=== PATIENT | female | born 1965 | race Caucasian/White ===

== ENCOUNTER 2018-08-24 09:40 | Emergency (ER) | payer SELFPAY ==
[~2018-08-24] VITALS: Ht 154.9 cm; Wt 54.4 kg
== END 2018-08-24 10:00 | disposition home or self-care (01) ==
LOC: ED 09:40
DX: R05 Cough (principal)

== ENCOUNTER 2023-07-17 16:56 | Emergency (ER) | payer OTHER ==
[~2023-07-17] VITALS: Ht 154.9 cm; Wt 65.8 kg
--- OUTSIDE RECORDS SUMMARY | 2023-07-17 16:58 | XMS ---
PreManage Notification: MARII ZELAYA Security Billing Representative Events 1 event(s) in the past 18 months Most recent security events: Elopement at [facility] 03/30/2023 13:46 - Patient eloped with IV in place. - Patient eloped before treatment completed. - Patient with suicidal and/or homicidal ideations eloped. Details: Patient LWBS CRITERIA MET - 6 ED Visits in 6 Months - [facility] - 2 Visits in 30 Days CARE PROVIDERS BRETT HOLT Community Health Worker 06/20/2022-Current PHONE: [phone] [facility] Community Health Worker 08/03/2019-Current PHONE: [phone] Re Wall Community Health Worker 08/03/2019-Current PHONE: [phone] -Guerda- Dentist: Signs Sales Representative [facility] PHONE: [phone] [facility] Pediatrics Current CARE SYSTEM \F\ [facility] PHONE: [phone] Care Guidelines exist for the following facilities: [facility] Merissa ( 08/12/2019 ) Saritha VISIT COUNT (12 MO.) [address] [place] TOTAL 14 NOTE: Visits indicate total known visits. ED/UCC VISIT TRACKING (12 MO.) 07/17/2023 16:57 [facility] [place] TYPE: Emergency COMPLAINT: - WEAKNESS 07/13/2023 19:06 [facility] [place] TYPE: Emergency DIAGNOSES: - Acute stress reaction - CHEST PAIN AND ANXIETY 05/26/2023 20:14 [facility] [place] TYPE: Emergency DIAGNOSES: - Abrasion of other part of head, initial encounter - Contusion of other part of head, initial encounter - Urinary tract infection, site not specified - HEAD INJURY 03/30/2023 13:46 [facility] [place] TYPE: Emergency COMPLAINT: - R ANKLE PAIN 03/20/2023 21:01 [email or web address] [place] TYPE: Emergency DIAGNOSES: - Diarrhea, unspecified - Nausea with vomiting, unspecified - WEAKNESS/DIARRHEA 03/16/2023 10:55 [email or web address] [place] TYPE: Emergency DIAGNOSES: - Cystitis, unspecified without hematuria - UTI 01/26/2023 06:16 [facility] [place] TYPE: Emergency COMPLAINT: - L SHOULDER PAIN DIAGNOSES: - L SHOULDER PAIN 01/24/2023 10:38 [facility] [place] TYPE: Emergency COMPLAINT: - ANKLE PAIN DIAGNOSES: - Allergy status to penicillin - Anxiety disorder, unspecified - Homelessness unspecified - Nicotine dependence, unspecified, uncomplicated - Pain in right ankle and joints of right foot 12/27/2022 22:10 [facility] [place] TYPE: Emergency DIAGNOSES: - Pain in right foot - foot pain 12/26/2022 22:00 [facility] [place] TYPE: Emergency DIAGNOSES: - Pain in right foot - FEVER AND FOOT PAIN 12/21/2022 16:33 [facility] [place] TYPE: Emergency DIAGNOSES: - Generalized abdominal pain - abd pain 10/30/2022 19:53 [facility] DIAGNOSES: - Pain in right foot - R FOOT PROBLEM 08/09/2022 06:24 [facility] [place] TYPE: Emergency DIAGNOSES: - Contusion of lower back and pelvis, initial encounter - PELVIC PAIN 07/28/2022 07:58 [facility] [place] TYPE: Emergency DIAGNOSES: - Local infection of the skin and subcutaneous tissue, unspecified - Other injury of unspecified body region, initial encounter - L KNEE INFECTION INPATIENT VISIT TRACKING (12 MO.) No inpatient visits to display in this time frame [email or web address]
[2023-07-17 17:57] LABS: INFLUENZA B NAA NEGATIVE (NEGATIVE); RESPIRATORY SYNCYTIAL VIR NAA NEGATIVE (NEGATIVE)
[2023-07-17 19:15] VITALS: BP 114/73
== END 2023-07-17 19:15 | disposition home or self-care (01) ==
LOC: ED 16:56
PROVIDERS: Emergency Medicine
DX: B30.9 Viral conjunctivitis, unspecified (principal); F17.200 Nicotine dependence, unspecified, uncomplicated; Z11.52 Encounter for screening for COVID-19; Z88.0 Allergy status to penicillin
CPT/HCPCS: 87502; 99283; U0002